=== PATIENT | female | born 1965 | race African-American/Black ===

== ENCOUNTER 2019-12-19 10:04 | Emergency (ER) | payer SELFPAY ==
[~2019-12-19] VITALS: Ht 160 cm; Wt 90.9 kg
[2019-12-19 10:15] VITALS: Ht 160 cm; Wt 90.9 kg
[2019-12-19 19:10] VITALS: BP 171/93
== END 2019-12-19 11:25 | disposition home or self-care (01) ==
LOC: D.ER 10:04
DX: I10 Essential (primary) hypertension (principal)

== ENCOUNTER 2019-12-24 18:32 | Emergency (ER) | payer SELFPAY ==
[~2019-12-24] VITALS: Ht 160 cm; Wt 90.9 kg
[2019-12-24 18:38] VITALS: Ht 160 cm; Wt 90.9 kg
[2019-12-24] MEDS ORDERED: ZPAK PO (20:01)
[2019-12-24] MEDS ORDERED: MUCINEX DM ER1 EAC1 PO (20:01)
[2019-12-24 20:20] VITALS: BP 152/87
== END 2019-12-24 20:20 | disposition home or self-care (01) ==
LOC: D.ER 18:32
DX: J02.9 Acute pharyngitis, unspecified (principal); I10 Essential (primary) hypertension